=== PATIENT | male | born 1985 | race Caucasian/White ===

== ENCOUNTER 2024-04-22 11:24 | Emergency (ER) | payer SELFPAY ==
[2024-04-22 11:26] VITALS: BP 154/83; PULSE 112; RESP 18; TEMP 37.3; O2SAT 100
[2024-04-22] MEDS: HYDROcodone Bitartrate/Apap 5/325 Tablet PO (12:06)
[2024-04-22] MEDS: Ondansetron ODT 4 MG Tablet PO (12:06)
--- NOTE | 2024-04-22 12:10 | RAD_ITS ---
HISTORY: dog bit to pinky. TECHNIQUE: XR Hand Min 3 Views. COMPARISON: None. FINDINGS: BONES : Fracture of the fifth middle phalanx with mild ulnar displacement, mild overlap, and nearly one shaft width palmar displacement. Mineralization unremarkable. JOINTS: Mild dorsal subluxation of the fifth distal phalanx relative to the middle phalanx. Other joint spaces maintained. SOFT TISSUES: Laceration and soft tissue swelling of the fifth finger adjacent to the middle phalanx. RAD/Hand Min 3 Views IMPRESSION: Laceration of the left fifth finger with fracture subluxation of the distal interphalangeal joint. Electronically Signed: Nancy Donato MD at 13:01 EDT ,
[2024-04-22 12:24] VITALS: BP 107/79; PULSE 98; RESP 16; O2SAT 99
[2024-04-22 13:00] VITALS: BP 110/74; PULSE 91; RESP 16; O2SAT 99
[2024-04-22] MEDS: Cefazolin 2 GM in 0.9% Normal Saline (100mL Bag) 100 ML IV (13:13)
[2024-04-22] MEDS: Diphth,Pertuss(Acell),Tet Vac 0.5 ML Vial IM (13:32)
[2024-04-22 14:00] VITALS: BP 118/74; PULSE 89; RESP 16; O2SAT 98
--- NOTE | 2024-04-22 14:07 | EDS_ITS ---
HPI History of Present Illness Chief Complaint: Bite Narrative Narrative: Patient is a 38-year-old male with no known significant past medical history who presents to the emergency department the chief complaint of a dog bite to his left pinky finger. He states that earlier today prior to his arrival here he his 2 dogs that were fighting and the 1 bit his finger. Patient states that he is unsure when his last tetanus shot is up-to-date. Patient states that his dogs are up-to-date on their vaccines. Patient rates his pain a 9 out of 10 on exam. PFSH PFSH Medical History no medical history Home Medications ?Medication ?Instructions ?Recorded ?Last Taken ?Type amoxicillin 500 mg-potassium 1 tab PO TID 7 days #21 tabs 04/22/24 Unknown Rx clavulanate 125 mg tablet (Augmentin) ondansetron 4 mg disintegrating 4 mg PO Q6H PRN nausea and 04/22/24 Unknown Rx tablet vomiting #20 tabs oxycodone-acetaminophen 5 mg-325 1 tab PO Q4H PRN pain 3 days #12 04/22/24 Unknown Rx mg tablet (Endocet) tabs Allergy/AdvReac Type Severity Reaction Status Date / Time Penicillins Allergy UNKOWN Verified 04/22/24 11:28 Social History Smoking Status: Never smoker ROS ROS ED ROS Narrative Constitutional: Denies any fevers, chills Neurological: Complains of decreased sensation in his pinky finger denies any other numbness or tingling Musculoskeletal: Complains of dog bite to the left pinky finger as noted above EXAM Physical Exam Narrative Exam Narrative: General: Patient lying in bed did appear to be uncomfortable secondary to his dog bite wound Head: Atraumatic, normocephalic Eyes: PERRL bilateral, EOMI bilateral, no conjunctival injection noted Neck: Soft, supple, trach midline Cardiovascular: Regular in rhythm Extremities: Radial pulses +2/4 in the bilateral extremities, patient has inability to flex his pinky finger on the left hand at the DIP joint but he can at the proximal interphalangeal joint Neurological: Patient has decreased sensation at the tip of the left pinky finger the rest of the ulnar and medial nerves is was a radial nerve distribution intact Skin: Patient has a complex 5 and half centimeter laceration to the left pinky finger Const Vital Signs: 04/22/24 11:26 04/22/24 12:24 04/22/24 13:00 Temperature 99.2 F H Temperature Source Temporal Pulse Rate 112 H 98 91 Respiratory Rate 18 16 16 Blood Pressure 154/83 H 107/79 110/74 Blood Pressure Mean 106 88 86 Pulse Ox 100 99 99 Oxygen Delivery Method Room Air Room Air Room Air 04/22/24 14:00 Temperature Temperature Source Pulse Rate 89 Respiratory Rate 16 Blood Pressure 118/74 Blood Pressure Mean 88 Pulse Ox 98 Oxygen Delivery Method Room Air MDM MDM MDM Narrative Medical decision making narrative: Patient is a 38-year-old male who presented to the emerged part with a chief complaint of dog bite to the left pinky finger. Patient's tetanus shot was updated here he was given Percocet for pain control. Patient had x-ray reviewed and prior to official radiology read 2 g of Ancef was open for a suspected open fracture. Patient's x-ray of his left hand showed a laceration of the left finger with fracture subluxation of the distal interphalangeal joint. Did discuss case with on-call orthopedic surgeon here Dr. Renteria who states that he would recommend he transferring the patient. I called and discussed with Anita Chawla And their on-call hand surgeon Dr. Pamela Miller recommends having him follow-up in the office tomorrow morning and place him on antibiotics. I closely approximated the laceration and splinted his finger. Once again the patient received IV antibiotics here he will be placed on Augmentin which was sent to his pharmacy also sent to his pharmacy for pain control was Percocet and Zofran. He was encouraged to be n.p.o. at midnight in preparation for his appointment with them tomorrow. Patient was encouraged return with purulent discharge or surrounding redness or any other concerns. He is also to follow-up with his primary care physician. Procedure note Procedure name: Laceration repair Indication: Reduce risk of infection Location: Distal interphalangeal joint 5.5 cm complex laceration fifth pinky finger Preprocedure diagnosis: Laceration Postprocedure diagnosis: Repaired laceration Informed consent was obtained prior to procedure started. Procedure: The appropriate timeout was taken. The area was prepped and draped in usual sterile fashion. Local anesthesia was achieved using a digital block with 4 cc of lidocaine 1% without epinephrine. Wound was copiously irrigated. The wound was closely approximated with 6 4-0 Ethilon interrupted sutures were placed. Estimated blood loss was less than 0.5 mL. Dressing was applied to the area and anticipatory guidance, as well as standard postprocedure care was explained. Return precautions are given. Patient tolerated procedure well without any complications. Follow-up visit for suture removal and evaluation of laceration. Radiography Diagnostic Testing: Clinical Impression(s) from Imaging Studies Hand X-Ray 04/22/24 12:10 IMPRESSION: Laceration of the left fifth finger with fracture subluxation of the distal interphalangeal joint. Electronically Signed: Nancy Donato MD at 13:01 EDT , Discharge Plan Triage Chief Complaint: Bite Other Complaint: Laceration ED Provider: Ld Fernandez Dx/Rx/DC Orders Clinical Impression: Open fracture of phalanx of little finger, Dog bite Prescriptions: New amoxicillin-pot clavulanate [Augmentin] 500-125 mg tablet 1 tab PO TID 7 Days Qty: 21 0RF oxycodone-acetaminophen [Endocet] 5-325 mg tablet 1 tab PO Q4H PRN (Reason: pain) 3 Days Qty: 12 0RF ondansetron 4 mg tablet,disintegrating 4 mg PO Q6H PRN (Reason: nausea and vomiting) Qty: 20 0RF Primary Care Provider: Care Physician,No Primary Referrals: Care Physician,No Primary [Primary Care Provider] - Carlos A Willis MD [Med Staff - Housekeeping/Laundry Supervisor] - Activity Restrictions/Additional Instructions: Take antibiotics as prescribed, use the Percocet and Zofran for severe pain and use Tylenol ibuprofen mild to moderate pain. Tetanus shot was updated today. Do not anything after midnight in preparation for appointment tomorrow with Dr. Pamela Miller orthopedic hand surgeon at [facility]. Phone number [phone]. Return for purulent drainage or surrounding redness or any other concerns for infection. Print Language: Mongolian Disposition Disposition: Home, Self Care
[2024-04-22] MEDS: Lidocaine 1% (20 ml mdv) 20 ML Vial 10 ML INFILT (14:53)
[2024-04-22 14:54] VITALS: BP 119/68; PULSE 82; RESP 16; TEMP 37.1; O2SAT 100
== END 2024-04-22 14:56 | disposition home or self-care (01) ==
PROVIDERS: Emergency Provider Emergency Medicine; Visit Provider Emergency Medicine
DX: S62.627B Displaced fracture of middle phalanx of left little finger, initial encounter for open fracture (principal); W54.0XXA Bitten by dog, initial encounter; Z23 Encounter for immunization
CPT/HCPCS: 12002; 73130; 90471; 90715; 96365; 96366; 99285; A4216